=== PATIENT | male | born 1985 | race Caucasian/White ===

== ENCOUNTER → 2016-12-09 | Outpatient (CLI) | payer BC ==
[~2016-12-09] MED LIST: MULT-513 PO
--- NOTE | 2016-12-09 11:57 | DIAGNOSTIC IMAGING REPORT ---
RIGHT HAND MIN 3 VIEWS ROUTINE CLINICAL HISTORY: Right hand pain. COMPARISON STUDY: None. FINDINGS: No fracture or dislocation within the right hand. Soft tissues are unremarkable. No radiopaque foreign bodies. IMPRESSION: No fracture or dislocation within the right hand. Electronically signed by: Yusuf Matt M.D. 12/09/2016 11:56 AM Dictated Date/Time: 12/09/2016 11:52 AM
== END | disposition home or self-care (01) ==
LOC: C.RADBC 11:32
PROVIDERS: ATTEND Family Medicine
DX: M79.641 Pain in right hand (principal)

== ENCOUNTER 2017-02-15 12:50 | Emergency (ER) | payer BC ==
[~2017-02-15] VITALS: Ht 188 cm; Wt 80.2 kg
[2017-02-15 12:53] VITALS: TEMP 36.6; Ht 188 cm; Wt 80.2 kg
[2017-02-15] MEDS ORDERED: XYLOCAINE 1%/SOD BICARB 20 ML VIAL INFIL ONE (13:15)
--- NOTE | 2017-02-15 14:13 | EMERGENCY ROOM VISIT NOTE ---
ED Visit Note First contact with patient: 13:08 CHIEF COMPLAINT: Left index finger laceration HISTORY OF PRESENT ILLNESS: This 31-year-old male presents the ER with chief complaint of a laceration to his left index finger. The patient states just prior to arrival he was using a jigsaw when it jumped and hit his left index finger. The patient states that it is still bleeding. He is able to bend his finger without difficulty. The patient's tetanus is up-to-date. The patient is right-hand dominant. REVIEW OF SYSTEMS: 6 system review was performed and was negative unless stated otherwise in history of present illness. PMH: The patient is healthy; appendectomy SOCIAL HISTORY: Patient denies tobacco use but admits to occasional alcohol use. PHYSICAL EXAM: Vital Signs: Were reviewed Reviewed Nurse's notes. GEN.: 31-year -old white male appears in no acute distress. MENTAL STATUS: Alert and oriented 3. LEFT INDEX FINGER: There is a 1 cm long laceration on the dorsal aspect of the proximal phalanx .The edges are gaping widely apart. There is no foreign material in the wound and it looks clean. There is no active bleeding. No deep structures such as tendons or nerves are seen in the base of the wound. She has a superficial abrasion extending from the laceration. Extension and flexion of the fingers is full and strong. Sensation to pain and light touch is intact. EMERGENCY DEPARTMENT COURSE: The patient was evaluated. The patient was offered pain meds but declined. Wound Repair: Complexity: Basic. Verbal consent was obtained after the risks and benefits were explained, including but not limited to bleeding, scarring, infection, pain, and bone/joint /nerve damage. The skin was prepped with betadine and a sterile field set. The wound was anesthetized with2.0 ml of 1% buffered lidocaine. . Copious irrigation was performed using sterile saline. The wound was explored for foreign bodies and none found. Debridement was not performed. The wound edges were approximated using 5-0 Ethilon with 3 simple interrupted sutures. Hemostasis and excellent approximation was achieved. Antibacterial ointment and a sterile dressing applied. Detailed wound care instructions and signs and symptoms of infection reviewed with the patient. No complications and the patient tolerated the procedure well. DIAGNOSIS: 1 cm left index finger laceration DISCHARGE INSTRUCTIONS & TREATMENT: Keep wound clean and dry. No water on the area for 12-24 hrs then no soaking until sutures removed. Do not allow any crusting or dried blood to accumulate on sutures. If this occurs, use a 1:1 solution of hydrogen peroxide/water on a Q-tip to clean the wound. Use an antibiotic ointment for 3-4 days, then let wound dry. Suture removal in 8 days. Follow up sooner for any signs of infection (increasing redness, swelling , drainage). Ice and elevate for swelling and pain. Tylenol 650 mg every 6 hrs for pain. Current/Historical Medications Scheduled Multivitamins/Minerals (Mvi With Minerals), 1 TAB PO DAILY Allergies Coded Allergies: BEE STING (Verified Allergy, Unknown, ., 02/15/17) Uncoded Allergies: RED FIRE ANT STINGS (Allergy, Unknown, 12/22/02) Vital Signs Date Time Temp Pulse Resp B/P Pulse Ox O2 Delivery O2 Flow Rate FiO2 02/15/17 12:53 36.6 90 18 137/81 95 Room Air Departure Information Referrals Glen Ocampo DO (PCP) Patient Instructions My [facility]
[2017-02-15 14:17] VITALS: BP 128/82; PULSE 82; O2SAT 100
== END 2017-02-15 14:18 | disposition home or self-care (01) ==
LOC: C.EDB 12:51 → C.EDD 14:18
DX: S61.211A Laceration without foreign body of left index finger without damage to nail, initial encounter (principal); W29.8XXA Contact with other powered hand tools and household machinery, initial encounter; Z90.89 Acquired absence of other organs